=== PATIENT | male | born 1980 | race African-American/Black ===

== ENCOUNTER 2024-03-18 18:42 | Emergency (ER) | payer OTHER ==
[2024-03-18 18:54] VITALS: BP 123/62; PULSE 57; RESP 18; TEMP 97; BMI 29.7
[2024-03-18 20:52] LABS: THROAT:GRP A STREP NOT DETECTED (NOTDETECTED)
[2024-03-18] MEDS ORDERED: LIDOCAINE VISCOUS 2% ORAL/TOP 15 ML UNIT-DOSE CUP ONE (21:24)
[2024-03-18] MEDS: LIDOCAINE VISCOUS 2% ORAL/TOP 15 ML UNIT-DOSE CUP MM ONE (21:27)
== END 2024-03-18 21:56 | disposition home or self-care (01) ==
LOC: JERFT 18:42
DX: U07.1 COVID-19 (principal); J02.9 Acute pharyngitis, unspecified; R50.9 Fever, unspecified; B34.9 Viral infection, unspecified
CPT/HCPCS: 0241U-QW; 87651; 99283-25